=== PATIENT | female | born 1985 | race Caucasian/White ===

== ENCOUNTER 2019-08-03 18:22 | Emergency (ER) | payer OTHER, MEDICAID ==
[2019-08-03 18:36] VITALS: RESP 18
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
[2019-08-03 19:28] VITALS: BP 130/70; PULSE 72; TEMP 98.2
== END 2019-08-03 19:25 | disposition home or self-care (01) ==
LOC: EC 18:22
DX: S16.1XXA Strain of muscle, fascia and tendon at neck level, initial encounter (principal); S00.83XA Contusion of other part of head, initial encounter; F17.200 Nicotine dependence, unspecified, uncomplicated; V89.2XXA Person injured in unspecified motor-vehicle accident, traffic, initial encounter; Y92.410 Unspecified street and highway as the place of occurrence of the external cause
CPT/HCPCS: 99283

== ENCOUNTER → 2020-07-02 | Outpatient (CLI) | payer BC ==
--- NOTE | 2020-07-02 11:11 | US ---
EXAMINATION TYPE: Transabdominal DATE OF EXAM: 07/02/2020 10:44 AM COMPARISON: NONE CLINICAL HISTORY: O76 Absence of heart tones. . Abnormality of physician office. EXAM PERFORMED: Transvaginal (TV) to assess FHR and Transabdominal (TA) EXAM MEASUREMENTS: GESTATIONAL AGE / DATING Physician Established: Not yet established Dates by LMP: 04/15/2020 (11 weeks/1 day) EDC: 01/20/2021 Dates by First Scan: No previous. Dates by Current Scan for: (10 weeks/6 days) EDC: 01/22/2021 MATERNAL ANATOMY Uterus: 13.0 x 5.5 x 6.6cm Right Ovary: 3.4 x 2.2 x 3.3cm Left Ovary: 2.6 x 1.1 x 1.9cm Post CDS / Adnexa: wnl Presence of free fluid: no Presence of corpus luteal cyst: in right ovary = 1.8 x 1.7 x 1.4cm Presence of subchorionic bleed: no GESTATION / SURVEY CRL: 4.0 (10 weeks/6 days) Yolk Sac (normal less than 6mm): 4.3mm Heart Rate: 161 bpm Rhythm: Normal IUP: single, live IUP Nuchal Translucency 10-14wks (normal less than 3mm): 0.9mm Date of LMP: 04/15/2020 Beta HcG (if available): NA Tech findings called to Charmaine at Dr Kraft's Office at exam's end. JJ Single live intrauterine gestation is confirmed as gestational sac, yolk sac, and pole are iden tified. heart tones regular and within normal limits. No free fluid in pelvic cul-de-sac. Both ovaries are identified. There is no suspicious extraovarian adnexal mass. There is 1.8 cm periph eral hypervascular isoechoic lesion right ovary consistent with corpus luteal cyst. IMPRESSION: Confirmation single live intrauterine gestation, mean crown-rump length is 4.0 cm corresp onding to 10 week 6 day old fetus.
== END | disposition home or self-care (01) ==
LOC: RADUSWWP 10:02
PROVIDERS: ATTEND Obstetrics & Gynecology
DX: O76 Abnormality in fetal heart rate and rhythm complicating labor and delivery (principal); Z3A.10 10 weeks gestation of pregnancy
CPT/HCPCS: 76801; 76813; 76817

== ENCOUNTER 2021-01-14 05:58 | Inpatient (IN) | payer BC ==
[2021-01-14] MEDS ORDERED: TERBUTALINE 1 MG/ML VIAL SQ PRN (06:27)
[2021-01-14] MEDS ORDERED: OXYTOCIN 10 UNIT/ML 1 ML VIAL IM PRN (06:27)
[2021-01-14] MEDS ORDERED: CARBOPROST TROMETHAMINE 250 MCG/ML 1 ML AMP IM PRN (06:27)
[2021-01-14] MEDS ORDERED: METHYLERGONOVINE 0.2 MG/ML 1 ML AMP IM PRN (06:27)
[2021-01-14] MEDS ORDERED: LIDOCAINE 0.5% (PF) 5 MG/ML (50 ML SDV) SQ PRN (06:27)
[2021-01-14] MEDS ORDERED: OXYTOCIN 30 UNITS/500 ML NS 30 UNIT in SALINE 1 500ML.BAG IV SCH (06:30)
[2021-01-14] MEDS: LACTATED RINGERS 1,000 ML IV SCH ×3 (06:31→16:32)
[2021-01-14 06:37] LABS: Basophils % (A) 0 %; Eosinophils # (A) 0.2 k/uL (0-0.7); Eosinophils % (A) 3 %; HCT 33.5 % (34.0-46.0); HGB 11.8 gm/dL (11.4-16.0); Lymphocytes # (A) 1.4 k/uL (1.0-4.8); Lymphocytes % (A) 16 %; MCH 33.3 pg (25.0-35.0); MCHC 35.1 g/dL (31.0-37.0); MCV 94.9 fL (80.0-100.0); Mean Platelet Volume 7.9; Monocytes # (A) 0.4 k/uL (0-1.0); Monocytes % (A) 4 %; Neutrophils # (A) 6.6 k/uL (1.3-7.7); Neutrophils % (A) 76 %; Platelet Count 271 k/uL (150-450); RBC 3.53 m/uL (3.80-5.40); RDW 13.4 % (11.5-15.5); WBC 8.7 k/uL (3.8-10.6)
--- NOTE | 2021-01-14 08:08 | P.HPOB ---
History of Present Illness H&P Date: 01/14/21 Chief Complaint: Here for elective induction of labor This is a 35-year-old white female 1 para 0 EDC 01/20/2021 at 39 and one sevenths weeks' gestation. Patient presents this morning for induction of labor. Fetus is been active throughout the . She denies fluid leakage or vaginal bleeding. Past medical history is essentially negative. Past surgical history is also negative. Current medications vitamins daily. ALLERGIES none known. Family history significant for hypertension, diabetes, postmenopausal breast cancer. Social history patient is , she is up [email or web address] employee, she is a former tobacco smoker, she denies alcohol or drug use. history blood type is O+, rubella status immune. VDRL testing, urine culture, hepatitis B surface antigen, HIV testing, gonorrhea and chlamydia cultures, group B strep cultures all negative. One-hour Glucola 92. On exam patient is 5 foot 8 inches, 200 pounds, blood pressure 124/76, vital signs are stable and she is afebrile. Chest is clear in all page. Extremit ies reveal no edema. Cervix is 3 cm dilated, 70% effaced, -2 station, vertex presentation, soft, anterior. Artificial amniorrhexis reveals clear fluid. heart rate is consistent with reactive NST. Impression: 39 and one sevenths weeks intrauterine , here for induction of labor, all signs reassuring. Plan continue oxytocin per hospital protocol. Close maternal and surveill ance. Anticipating normal spontaneous vaginal delivery. Review of Systems Constitutional: Reports as per HPI Past Medical History Past Medical History: No Reported History History of Any Multi-Drug Resistant Organisms: None Reported Past Surgical History: No Surgical Hx Reported Past Anesthesia/Blood Transfusion Reactions: No Reported Reaction Past Psychological History: No Psychological Hx Reported Smoking Status: Never smoker Past Alcohol Use History: Occasional Past Drug Use History: None Reported Medications and Allergies Home Medications Medication Instructions Recorded Confirmed Type Aspirin 81 mg PO DAILY 01/14/21 01/14/21 History Pnv No.95/Ferrous Fum/Folic AC 1 tab PO DAILY 01/14/21 01/14/21 History [ Multivitamin Tablet] Allergies Allergy/AdvReac Type Severity Reaction Status Date / Time No Known Allergies Allergy Verified 01/14/21 06:21 Exam Intake and Output 01/13/21 01/14/21 01/14/21 22:59 06:59 14:59 Other: Weight 90.718 kg See dictation under HPI Results Result Diagrams: 01/14/21 06:25 Abnormal Lab Results - Last 24 Hours (Table) 01/14/21 Range/Units 06:25 RBC 3.53 L (3.80-5.40) m/uL Hct 33.5 L (34.0-46.0) % Assessment and Plan Assessment: 39 and one sevenths week intrauterine , here for induction of labor. All signs reassuring. Plan: Oxytocin per hospital protocol. Close maternal and surveillance. Anticipating normal spontaneous vaginal delivery. Time with Patient: Less than 30
[2021-01-14] MEDS ORDERED: ROPIVACAINE 5MG/ML 20ML VIAL ONE (11:47)
[2021-01-14] MEDS ORDERED: SODIUM CHLORIDE 0.9% 100 ML BAG ONE (11:47)
[2021-01-14] MEDS ORDERED: fentaNYL (PF) 50 MCG/ML 5 ML AMP ONE (11:47)
[2021-01-14] MEDS ORDERED: diphenhydrAMINE 50 MG CAP PO PRN (18:08)
[2021-01-14] MEDS ORDERED: LANOLIN CREAM 5 GM TUBE TOPICAL PRN (18:08)
[2021-01-14] MEDS ORDERED: BENZOCAINE/MENTHOL SPRAY 1 GM/SPRAY AEROSOL TOPICAL PRN (18:08)
[2021-01-14] MEDS ORDERED: SIMETHICONE 80 MG CHEWABLE PO PRN (18:08)
[2021-01-14] MEDS ORDERED: diphenhydrAMINE 50 MG/ML 1 ML VIAL IVP PRN ×2 (18:08)
[2021-01-14] MEDS ORDERED: ACETAMINOPHEN TAB 325 MG TAB PO PRN (18:08)
[2021-01-14] MEDS ORDERED: diphenhydrAMINE 25 MG CAP PO PRN (18:08)
[2021-01-14] MEDS ORDERED: HYDROCORTISONE 2.5% RECTAL CREAM 30 GM TUBE RECTAL PRN (18:08)
[2021-01-14] MEDS ORDERED: ZOLPIDEM 5 MG TAB PO PRN (18:08)
--- NOTE | 2021-01-14 18:08 | P.PROBDLV ---
Vaginal Delivery Note - . Vaginal Delivery Note: This is a 35-year-old white female 1 para 0 EDC 01/20/2021 at 39 and one sevenths weeks' gestation. Patient presented this morning for induction of labor with favorable cervix. Artificial amniorrhexis revealed clear fluid. Blood type O positive, rubella status immune, group B strep cultures negative. Please see dictated history and physical for details. Oxytocin was started and titrated per hospital protocol. Epidural was placed per her request. heart tones were reassuring throughout the first and second stages of labor. Patient progressed well and became completely dilated at 1645 hrs. She began the second stage of labor at that time. She pushed successfully and ultimately the perineal body was prepped and draped in usual sterile fashion. The 's head delivered occiput anterior and he restituted accordingly. The right or anterior shoulder was gently delivered from underneath the pubic symphysis at which time the oropharynx nasopharynx and external nares were all bulb suctioned on the perineal body. Patient was officially delivered of a liveborn male infant at 1746 hrs. Umbilical cord was doubly clamped and ligated, he was handed to waiting nurses for evaluation where scores of 8 and 9 at one and 5 minutes respectively were given. The placenta delivered spontaneously, it was inspected and noted to be intact with trivascular cord at 1751 hrs. The uterus was then massaged. Careful inspection of the cervix, vagina, perineum, periurethral, and perirectal areas revealed a small first-degree perineal laceration at 6:00. This is repaired in the usual fashion using 3-0 rapide suture. All sponge needle and enhancement counts are correct at the end of the procedure. Infant weighed 6 pounds 11.4 ounces or 3045 g. Patient is requesting circumcision for her infant son. Total estimated blood loss at delivery 250 mL's.
[2021-01-14] MEDS: SENNOSIDES-DOCUSATE SODIUM 1 EACH TAB PO SCH (22:02)
[2021-01-14] MEDS: IBUPROFEN 600 MG TAB PO PRN (22:03)
--- NOTE | 2021-01-15 07:33 | P.DS ---
Providers Date of admission: 01/14/21 05:58 Expected date of discharge: 01/15/21 Attending physician: Nicky Kraft Primary care physician: Stated None Hospital Course: This is a 35-year-old white female 1 para 0 EDC 01/20/2021 at 39 and one sevenths weeks' gestation. Patient presented for induction with favorable cervix. is unremarkable, blood type O+, rubella status immune, group B strep cultures negative. Please see dictated history and physical for details. Artificial amniorrhexis revealed clear fluid. Oxytocin was started and titrated per hospital protocol. Epidural was placed per her request. She went on to deliver vaginally a liveborn male with scores of 8 and 9 at one and 5 minutes respectively. weighed 6 pounds 11.4 ounces or 3040 g. The was a small first-degree perineal laceration easily repaired, and estimated blood loss of 250 mL's. Please see dictated delivery note for details. This morning the patient is doing well. She is voiding, ambulating, passing flatus without difficulty. Vital signs are stable and she is afebrile. Fundus is firm and in the midline, symmetric and 18 week size. Extremities are negative for edema. Fairlee infant is doing well, circumcision is to be performed at this time. Patient is judged to be in excellent condition for discharge home. She will follow-up with me in the office in 6 weeks. I have reminded her no intercourse, tampons or douching. She will use [id number] Advil or Aleve, or Motrin as needed for pain. She will call with any fevers shakes or chills, foul smelling or copious lochia, with the passage of large blood clots, with any pain not alleviated by [id number] meds, or indeed with any concerns. Fairlee infant will follow-up with grinder lap as per recommendations. Assessment: Doing well day #1 Patient Condition at Discharge: Good Plan - Discharge Summary Discharge Rx Participant: No New Discharge Prescriptions: No Action Aspirin 81 mg PO DAILY Pnv No.95/Ferrous Fum/Folic AC [ Multivitamin Tablet] 1 tab PO DAILY Discharge Medication List Aspirin 81 mg PO DAILY 01/14/21 [History] Pnv No.95/Ferrous Fum/Folic AC [ Multivitamin Tablet] 1 tab PO DAILY 01/14/21 [History] Follow up Appointment(s)/Referral(s): Nicky Kraft MD [STAFF PHYSICIAN] - 6 Weeks Discharge Disposition: HOME SELF-CARE
[2021-01-15 07:36] LABS: Basophils % (A) 0 %; Eosinophils # (A) 0.1 k/uL (0-0.7); Eosinophils % (A) 1 %; HCT 31.5 % (34.0-46.0); HGB 10.5 gm/dL (11.4-16.0); Lymphocytes # (A) 1.7 k/uL (1.0-4.8); Lymphocytes % (A) 14 %; MCH 32.4 pg (25.0-35.0); MCHC 33.3 g/dL (31.0-37.0); MCV 97.4 fL (80.0-100.0); Monocytes # (A) 0.4 k/uL (0-1.0); Monocytes % (A) 3 %; Neutrophils # (A) 10.1 k/uL (1.3-7.7); Neutrophils % (A) 82 %; Platelet Count 210 k/uL (150-450); RBC 3.24 m/uL (3.80-5.40); RDW 13.5 % (11.5-15.5); WBC 12.4 k/uL (3.8-10.6)
[2021-01-15] MEDS: SENNOSIDES-DOCUSATE SODIUM 1 EACH TAB PO SCH ×2 (07:57→20:26)
[2021-01-15] MEDS: IBUPROFEN 600 MG TAB PO PRN ×2 (07:58→20:26)
[2021-01-16 01:32] VITALS: TEMP 98.3
[2021-01-16 07:28] VITALS: BP 118/73; PULSE 84; RESP 20
[2021-01-16] MEDS: SENNOSIDES-DOCUSATE SODIUM 1 EACH TAB PO SCH (10:02)
== END 2021-01-16 10:44 | disposition home or self-care (01) | DRG 807 ==
LOC: 4FBP 05:58
PROVIDERS: ADMIT Obstetrics & Gynecology; ATTEND Obstetrics & Gynecology
PROC: 3E0R3BZ Introduction of Anesthetic Agent into Spinal Canal, Percutaneous Approach (ICD-10-PCS; principal; 2021-01-14)
PROC: 0HQ9XZZ Repair Perineum Skin, External Approach (ICD-10-PCS; principal; 2021-01-14)
PROC: 10907ZC Drainage of Amniotic Fluid, Therapeutic from Products of Conception, Via Natural or Artificial Opening (ICD-10-PCS; principal; 2021-01-14)
PROC: 3E033VJ Introduction of Other Hormone into Peripheral Vein, Percutaneous Approach (ICD-10-PCS; principal; 2021-01-14)
PROC: 00HU33Z Insertion of Infusion Device into Spinal Canal, Percutaneous Approach (ICD-10-PCS; principal; 2021-01-14)
PROC: 10E0XZZ Delivery of Products of Conception, External Approach (ICD-10-PCS; principal; 2021-01-14)
DX: O70.0 First degree perineal laceration during delivery (principal); Z37.0 Single live birth; Z3A.39 39 weeks gestation of pregnancy; Z79.82 Long term (current) use of aspirin; Z79.899 Other long term (current) drug therapy; Z87.891 Personal history of nicotine dependence; Z83.3 Family history of diabetes mellitus; Z82.49 Family history of ischemic heart disease and other diseases of the circulatory system; Z80.3 Family history of malignant neoplasm of breast
CPT/HCPCS: 85025; 86850; 86900; 86901